=== PATIENT | female | born 1950 | race Caucasian/White ===

== ENCOUNTER 2016-10-06 13:21 | Emergency (ER) | payer OTHER ==
[2016-10-06 13:37] VITALS: BP 128/87; PULSE 56; RESP 16; TEMP 97.7; O2SAT 96
[2016-10-06 13:44] LABS: COLOR YELLOW; LEUKOCYTE ESTERASE,URINE 2+ (NEGATIVE); NITRITE,URINE NEGATIVE (NEGATIVE)
[2016-10-06 13:54] LABS: RBC,URINE >182 /hpf (0-3); WBC,URINE >182 /hpf (0-3)
[2016-10-06 13:55] LABS: BACTERIA TRACE /hpf (NONE SEEN); YEAST OCCASIONAL /hpf (NONE SEEN)
--- NOTE | 2016-10-06 14:05 | UCPHY ---
H & P Time Seen by Provider: 10/06/16 13:28 Patient Type: New HPI/ROS: CHIEF COMPLAINT: Dysuria HPI: The patient is a 66-year-old female with a history of diabetes. She reports dysuria, urinary frequency and hematuria that began approximately 2-3 days ago. The patient denies fever. She does describe some mild bilateral lower back pain and suprapubic pain. No vomiting. Patient states that she was treated with Levaquin for a bladder infection approximately 2 weeks ago. She does not know what the sensitivities of the culture were. REVIEW OF SYSTEMS: Aside from elements discussed in the HPI, a comprehensive 10-point review of systems was reviewed and is negative. PMH: Diabetes. History of urinary infection recently. SOCIAL HISTORY: . Daughter is in graduate school. FAMILY HISTORY: Reviewed, noncontributory PHYSICAL EXAM: General:Patient is alert, in no acute distress. Abdomen:The abdomen is nontender to palpation. There are no peritoneal signs. There are normal bowel sounds. Back: Normal to inspection. No CVA tenderness to palpation. Skin: Normal color. No rash. Warm and dry. Extremities: Normal appearance. Full range of motion. Neuro: Oriented x3. Normal motor function. Normal sensory function. Smoking Status: Former smoker Constitutional: Initial Vital Signs Temperature (C) 36.5 C 10/06/16 13:33 Heart Rate 56 L 10/06/16 13:33 Respiratory Rate 16 10/06/16 13:33 Blood Pressure 128/87 H 10/06/16 13:33 O2 Sat (%) 96 10/06/16 13:33 O2 Delivery Mode Room Air Allergies/Adverse Reactions: loratadine [From Claritin] Allergy (Intermediate, Verified 10/06/16 13:33) Rash Home Medications: Medication Instructions Recorded Antihistamine 10/06/16 Byetta 10/06/16 Cephalexin [Keflex] 500 mg PO TID #42 cap 10/06/16 Lexapro 10/06/16 Lipitor 10/06/16 Lyrica 10/06/16 Ranitidine HCl 10/06/16 Tricor 10/06/16 MDM/Departure - MDM ED Course/Re-evaluation: This patient presents with signs and symptoms of a urinary tract infection. Her exam is not consistent with pyelonephritis, and she is afebrile. She is well appearing. Given her recent antibiotic use, I will switch her from Levaquin to Keflex. The patient requested a 14 day course of antibiotics. We will send urine culture and I have explained the need to call back for urine sensitivities. At this time I see no signs of systemic infection, severe sepsis or septic shock. Patient has no unilateral flank pain to suggest kidney stone. - Depart Disposition: Home, Routine, Self-Care Clinical Impression: UTI (urinary tract infection) Condition: Good Instructions: Urinary Tract Infection in Women (ED) Additional Instructions: Follow-up with your primary doctor within 72 hours. Return to the Emergency Department for fever, worsening pain, flank pain or failure to improve within 72 hours. It is possible that the bacteria causing your infection is resistant to the antibiotic we've placed you on. We have sent a urine for culture, if this comes back with a resistant bacteria, we will call you at the number you provided to us. Prescriptions: Cephalexin [Keflex] 500 mg PO TID #42 cap Referrals: HAYDE MARIE [Primary Care Provider] - As per Instructions - PQRS PQRS Measurement: n/a
== END 2016-10-06 14:16 | disposition home or self-care (01) ==
LOC: CED 13:21
DX: N39.0 Urinary tract infection, site not specified (principal); E11.9 Type 2 diabetes mellitus without complications; Z87.891 Personal history of nicotine dependence
CPT/HCPCS: 81003-PO; 81015-PO; 99203-PO; G0463-PO